=== PATIENT | female | born 1970 | race Caucasian/White ===

== ENCOUNTER 2020-03-17 15:13 | Emergency (ER) | payer OTHER, SELFPAY ==
[~2020-03-17] VITALS: Ht 167.6 cm; Wt 66.7 kg
[2020-03-17 15:25] VITALS: BP 130/82
[2020-03-17 15:50] LABS: BASOPHILS % (AUTO) 0.6 % (0.0-2.0); EOSINOPHILS # (AUTO) 0.2 K/uL (0-0.4); EOSINOPHILS % (AUTO) 2.8 % (0.0-4.0); HEMATOCRIT 38.5 % (36-48); HEMOGLOBIN 12.9 g/dL (12.0-16.0); LYMPHOCYTES # (AUTO) 1.4 K/uL (2.5-16.5); MEAN CORPUSCULAR HEMOGLOBIN 33 pg (27-31); MEAN CORPUSCULAR HGB CONC 34 g/dL (33-37); MEAN CORPUSCULAR VOLUME 97.5 fL (80-94); MONOCYTES # (AUTO) 0.7 K/uL (0.8-1.0); MONOCYTES % (AUTO) 8.5 % (1.7-9.3); NEUTROPHILS # (AUTO) 5.5 K/uL (1.8-7.7); NEUTROPHILS % (AUTO) 70.1 % (42.2-75.2); PLATELET COUNT (AUTO) 245 K/uL (140-450); RED BLOOD CELL COUNT(AUTO) 3.95 MIL/uL (4.20-5.40); RED CELL DISTRIBUTION WIDTH 13.6 % (11.6-13.7); WHITE BLOOD COUNT (AUTO) 7.8 K/uL (4.8-10.8)
[2020-03-17 16:04] LABS: ALBUMIN 3.7 g/dL (3.4-5.0); ANION GAP 12.1 (8-16); CARBON DIOXIDE 27.8 mmol/L (21-32); CREATININE 0.7 mg/dL (0.6-1.3); POTASSIUM 3.9 mmol/L (3.5-5.1); TOTAL BILIRUBIN 0.4 mg/dL (0.0-1.0)
[2020-03-17 17:00] VITALS: BP 106/62
== END 2020-03-17 17:00 | disposition home or self-care (01) ==
LOC: MED 15:13
DX: R07.89 Other chest pain (principal); M79.10 Myalgia, unspecified site
CPT/HCPCS: 36415; 71045; 80053; 83690; 83880; 84484; 85025; 93005; 99285; Q0092

== ENCOUNTER 2021-08-29 13:14 | Emergency (ER) | payer OTHER, SELFPAY ==
[~2021-08-29] VITALS: Ht 167.6 cm; Wt 67.6 kg
[2021-08-29 13:33] VITALS: BP 128/75
--- NOTE | 2021-08-29 13:38 | NUR ---
pt refusing all swabs at this time. only blood and xrays
[2021-08-29] MEDS ORDERED: PROM118S5 PO (14:49)
[2021-08-29] MEDS ORDERED: NAPR-54 PO (14:49)
[2021-08-29] MEDS ORDERED: AZIT250T4 PO (14:49)
[2021-08-29] MEDS ORDERED: PRED20TA5 PO (14:49)
[2021-08-29 15:07] VITALS: BP 128/75
--- NOTE | 2021-08-29 15:07 | NUR ---
Patient discharged with v/s stable. Written and verbal after care instructions given and explained. Patient alert, oriented and verbalized understanding of instructions. Ambulatory with steady gait. All questions addressed prior to discharge. ID band removed. Patient advised to follow up with PMD. Rx of azithromycin, naproxen, prednisone, promethazine (sent) given. Patient educated on indication of medication including possible reaction and side effects. Opportunity to ask questions provided and answered.
== END 2021-08-29 15:05 | disposition home or self-care (01) ==
LOC: MED 13:14
DX: J18.9 Pneumonia, unspecified organism (principal)
CPT/HCPCS: 71045; 99283